=== PATIENT | female | born 1990 | race Asian ===

== ENCOUNTER 2017-07-25 07:20 | Inpatient (IN) | payer OTHER ==
[~2017-07-25] VITALS: Ht 167.6 cm; Wt 86.8 kg
[2017-07-25] VITALS (46 sets, daily range): BP systolic 82–152; BP diastolic 46–87; PULSE 81–125; TEMP 97.7–99.8
[2017-07-25] MEDS ORDERED: FERROUS SU325 MG/TAB PO (07:23)
[2017-07-25] MEDS ORDERED: PRENATAL1 TA7 PO (07:23)
[2017-07-25] MEDS ORDERED: ZANTAC 150MG T150 MG PO (07:24)
[2017-07-25 08:00] LABS: BASO % 0.3 % (0.0-2.0); EOS # 0.2 (0.0-0.7); EOS % 1.5 % (0-4.0); GRAN # 10.7 (1.4-6.5); GRAN % 74.2 % (42.2-75.2); HEMOGLOBIN 12.1 g/dl (12.5-16.0); LYMPH # 2.3 (1.2-3.4); LYMPH % 15.7 % (20.0-51.0); MEAN CELL VOLUME 88 fl (80.0-100.0); MEAN CORPUSCULAR HEMOGLOBIN 30 pg (27.0-31.0); MEAN CORPUSCULAR HGB CONC 34 g/dl (33.0-37.0); MEAN PLATELET VOLUME 9.5 fl (7.4-10.4); MONO % 6.8 % (1.7-9.3); PLATELET COUNT 367 K/mm3 (130-400); RED BLOOD COUNT 4.08 M/mm3 (4.10-5.30)
[2017-07-26 04:30] VITALS: BP 98/66; PULSE 92; TEMP 97.3
[2017-07-26 07:24] LABS: HEMATOCRIT 29.7 % (37.0-47.0); HEMOGLOBIN 9.8 g/dl (12.5-16.0)
[2017-07-26 07:30] VITALS: BP 118/57; PULSE 89; TEMP 98.2
[2017-07-26 12:30] VITALS: BP 115/67; PULSE 92; TEMP 98.5
[2017-07-26 17:44] VITALS: BP 130/67; PULSE 90; TEMP 98.3
[2017-07-26 19:30] VITALS: BP 118/67; PULSE 93; TEMP 98.5
[2017-07-27 07:04] VITALS: BP 119/62; PULSE 68; TEMP 98.1
[2017-07-27] MEDS ORDERED: IBU600 MG PO (07:17)
[2017-07-27] MEDS ORDERED: PERCOCET 325 MG1 TA2 PO (07:17)
== END 2017-07-27 11:40 | disposition home or self-care (01) | DRG 775 ==
LOC: LDR 07:20 → OB 07:20
PROVIDERS: Obstetrics & Gynecology
PROC: 10E0XZZ Delivery of Products of Conception, External Approach (ICD-10-PCS; principal; 2017-07-25)
PROC: 0KQM0ZZ Repair Perineum Muscle, Open Approach (ICD-10-PCS; 2017-07-25)
DX: O70.1 Second degree perineal laceration during delivery (principal); Z37.0 Single live birth; Z3A.39 39 weeks gestation of pregnancy
CPT/HCPCS: J2590; J2795; J7120

== ENCOUNTER → 2019-04-19 | Outpatient (CLI) | payer BC ==
[~2019-04-19] MED LIST: FERROUS SU325 MG/TAB PO; IBU600 MG PO; PERCOCET 325 MG1 TA2 PO; PRENATAL1 TA7 PO; ZANTAC 150MG T150 MG PO
== END ==
LOC: MC.RAD 12:56
DX: R59.0 Localized enlarged lymph nodes (principal)

== ENCOUNTER → 2023-07-23 | Outpatient (CLI) | payer BC | LOC: MC.RAD 10:00 | DX: N64.4 Mastodynia (principal) ==